=== PATIENT | female | born 1975 | race Caucasian/White ===

== ENCOUNTER → 2017-10-23 | Outpatient (CLI) | payer BC | LOC: FIMAGING 09:29 | PROVIDERS: ATTEND Internal Medicine | DX: Z12.31 Encounter for screening mammogram for malignant neoplasm of breast (principal) ==

== ENCOUNTER → 2018-08-08 | Outpatient (CLI) | payer BC | LOC: FIMAGING 08:38 | PROVIDERS: ATTEND Internal Medicine | DX: N93.9 Abnormal uterine and vaginal bleeding, unspecified (principal); D25.9 Leiomyoma of uterus, unspecified ==

== ENCOUNTER 2019-01-07 05:38 | Day surgery (SDC) | payer BC ==
[2019-01-07] MEDS ORDERED: LR 1,000 ML IV ONE (05:49)
--- NOTE | 2019-01-07 07:12 | PDANEPAE ---
ANE History of Present Illness abnormal uterine bleeding, here for hysteroscopy and morcellator and novasure ANE Past Medical History - Cardiovascular History Hx Hypertension: No Hx Arrhythmias: No Hx Chest Pain: No Hx Coronary Artery / Peripheral Vascular Disease: No Hx CHF / Valvular Disease: No Hx Palpitations: No - Pulmonary History Hx COPD: No Hx Asthma/Reactive Airway Disease: No Hx Recent Upper Respiratory Infection: No Hx Oxygen in Use at Home: No Hx Sleep Apnea: No Sleep Apnea Screening Result - Last Documented: Negative - Neurologic History Hx Cerebrovascular Accident: No Hx Seizures: No Hx Dementia: No - Endocrine History Hx Diabetes: No - Renal History Hx Renal Disorders: No - Liver History Hx Hepatic Disorders: No - Neurological & Psychiatric Hx Hx Neurological and Psychiatric Disorders: No - Cancer History Hx Cancer: No - Congenital Disorder History Hx Congenital Disorders: No - GI History Hx Gastrointestinal Disorders: No - Other Health History Other Health History: none - Chronic Pain History Chronic Pain: Yes (lower back pain) - Surgical History Prior Surgeries: right hand surgery with hardware 5-7 yrs ago. labial reconstruction 17 yrs ago ANE Review of Systems Review of Systems: - Exercise capacity METS (RN): 5 METS ANE Patient History - Allergies Allergies/Adverse Reactions: No Known Allergies Allergy (Verified 01/06/19 12:28) - Home Medications Home Medications: Control Pills 03/24/18 [Last Taken 01/07/19 05:15] Herbals/Supplements -Info Only 01/06/19 [Last Taken 12/23/18] - NPO status NPO Since - Liquids (Date): 01/06/19 NPO Since - Liquids (Time): 21:00 NPO Since - Solids (Date): 01/06/19 NPO Since - Solids (Time): 21:00 - Smoking Hx Smoking Status: Never smoked - Family Anes Hx Family Hx Anesthesia Complications: none ANE Labs/Vital Signs - Vital Signs Blood Pressure: 110/65 Heart Rate: 46 Respiratory Rate: 10 O2 Sat (%): 95 Height: 172.72 cm Weight: 68.946 kg ANE Physical Exam - Airway Neck exam: FROM Mallampati Score: Class 1 Mouth exam: normal dental/mouth exam - Pulmonary Pulmonary: no respiratory distress, no rales or rhonchi - Cardiovascular Cardiovascular: regular rate and rhythym, no murmur, rub, or gallop - ASA Status ASA Status: II ANE Anesthesia Plan Anesthesia Plan: general endotracheal anesthesia, GA w LMA Total IV Anesthesia: No
[2019-01-07] MEDS ORDERED: MIDAZOLAM 2 MG/2 ML VIAL IVP ONE (07:13)
--- NOTE | 2019-01-07 07:14 | PDHPUP ---
History & Physical Update H&P update statement: This history and physical update is based on an assessment of the patient which was completed after admission or registration (within 24 hours), but prior to the surgery/procedure. H&P update: H&P reviewed & patient examined, no change in patient's condition since H&P completed
[2019-01-07] MEDS ORDERED: MIDAZOLAM 2 MG/2 ML VIAL ONE (07:15)
[2019-01-07] MEDS ORDERED: LIDOCAINE 2% 100 MG/5 ML SYR ONE (07:17)
[2019-01-07] MEDS ORDERED: ONDANSETRON 4 MG/2 ML VIAL ONE (07:17)
[2019-01-07] MEDS ORDERED: fentaNYL 100 MCG/2 ML INJ ONE (07:17)
[2019-01-07] MEDS ORDERED: PROPOFOL 200 MG/20 ML VIAL ONE (07:17)
[2019-01-07] MEDS ORDERED: DEXAMETHASONE 4 MG/ML VIAL ONE (07:17)
[2019-01-07] MEDS ORDERED: oxyCODONE IR 5 MG TAB PO PRN (07:56)
[2019-01-07] MEDS ORDERED: DIAZEPAM 10 MG/2 ML SYR IVP PRN (07:56)
[2019-01-07] MEDS ORDERED: HYDROmorphONE/DILAUDID 1 MG/ML INJ IVP PRN (07:56)
[2019-01-07] MEDS ORDERED: PROMETHAZINE HCL 25 MG/ML INJ IVP PRN (07:56)
[2019-01-07] MEDS ORDERED: MEPERIDINE 25 MG/0.5 ML AMP IVP PRN (07:56)
[2019-01-07] MEDS ORDERED: NALOXONE HCL 0.4 MG/ML INJ IVP PRN (07:56)
[2019-01-07] MEDS ORDERED: fentaNYL 100 MCG/2 ML INJ IVP PRN (07:56)
[2019-01-07] MEDS ORDERED: ACETAMINOPHEN 500 MG TAB PO PRN (07:56)
[2019-01-07] MEDS ORDERED: METOCLOPRAMIDE 10 MG/2 ML VIAL IVP PRN (07:56)
[2019-01-07] MEDS ORDERED: LR 500 ML IV PRN (07:56)
[2019-01-07] MEDS ORDERED: HYDROmorphONE/DILAUDID 2 MG/ML INJ ONE (08:05)
--- NOTE | 2019-01-07 08:26 | POSTANESTH ---
Post Anesthetic Evaluation Cardiovascular Status: Normal, Stable Respiratory Status: Normal, Stable Level of Consciousness/Mental Status: Can Participate in Eval, Alert and Oriented Pain Control: Adequate, Prn Tx Ordered Nausea/Vomiting Control: Adequate, Prn Tx Ordered Complications Possibly Related to Anesthesia: None Noted
--- NOTE | 2019-01-07 09:26 | POSTOPPROG ---
Post Op Note Date of Operation: 01/07/19 Surgeon: Kamilla Billy Anesthesiologist: Arina Roche, Anesthesia: LMA Pre-op Diagnosis: fibroid, DUB Post-op Diagnosis: same Indication: same Procedure: H/S myomectomy Findings: large posterior wall fibroid Inf/Abcess present in the surg proc area at time of surgery?: No EBL: Minimal Complications: samll uterine wall perforation
[2019-01-07 09:43] VITALS: BP 108/60
--- NOTE | 2019-01-07 10:47 | GOP ---
[f rep st] OPERATIVE REPORT DATE OF OPERATION: 01/07/2019 SURGEON: Kamilla Billy MD ANESTHESIA: General LMA. ANESTHESIOLOGIST: Kanika Roche DO PREOPERATIVE DIAGNOSIS: 1. Dysfunctional uterine bleeding. 2. Symptomatic submucosal fibroid. POSTOPERATIVE DIAGNOSIS: 1. Dysfunctional uterine bleeding. 2. Symptomatic submucosal fibroid. PROCEDURE PERFORMED: Hysteroscopic myomectomy that was aborted after excessive fluid loss and initia l plans to do NovaSure, but that was aborted as well. FINDINGS: Posterior wall fibroid measuring about 2 cm. ESTIMATED BLOOD LOSS: 50 cc. INDICATIONS: Patient is a 43-year-old who has been on control pills long-term. She has develo ped very heavy irregular bleeding on the pill and ultrasound shows submucosal filling defe ct, likely a fibroid and endometrial biopsy was negative for other endometrial abnormality. Desires definitive treatment. She was referred here by Dr. Tiesha Antony and Dr. Negra Herrera. DESCRIPTION OF PROCEDURE: With informed consent signed, patient was taken to the operating room and placed in dorsal lithotomy position, prepped and draped in usual sterile fashion. Bladder previously emptied. Tenaculum placed on the anterior lip of the cervix. Cervix dilated up to 9 mm. Hysteroscope placed using normal saline and findings as noted above. The [employer] morcellator using the reciprocator blade was placed into the hysteroscope and resec tion of the fibroid done. While this was being resected, there was significant fluid loss that was q uite rapid and it was felt that there was likely a uterine wall perforation during the time of resect ion, so once the deficit got to be 1600 and the field was cloudy, decided to terminate the procedure with likely getting about 90% of the fibroid. The hysteroscope removed and there was slight bleeding from the cervix and became hemostatic. The patient was awakened in the operating room, taken to rec overy room in stable condition. COMPLICATIONS: Likely left uterine wall perforation. /[id number]/MODL
== END 2019-01-07 09:50 | disposition home or self-care (01) ==
LOC: FSGY 05:38
PROVIDERS: ATTEND Obstetrics & Gynecology Gynecology
PROC: 0UB98ZX Excision of Uterus, Via Natural or Artificial Opening Endoscopic, Diagnostic (ICD-10-PCS; principal; 2019-01-07 07:15)
DX: D25.0 Submucous leiomyoma of uterus (principal); N99.71 Accidental puncture and laceration of a genitourinary system organ or structure during a genitourinary system procedure; N93.9 Abnormal uterine and vaginal bleeding, unspecified
CPT/HCPCS: 58561; C1782; J1100; J1170; J2001; J2250; J2405; J2704; J3010